=== PATIENT | female | born 2000 | race Caucasian/White ===

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

== ENCOUNTER → 2021-01-08 | Outpatient (CLI) | payer OTHER | LOC: RAD 15:27 | DX: R10.9 Unspecified abdominal pain (principal) ==

== ENCOUNTER → 2021-06-21 | Outpatient (CLI) | payer OTHER ==
[2021-06-21 12:11] LABS: BASO # 0.05 K/mm3 (0.02-0.10); EOS % 3.2 % (0.1-4.0); HEMATOCRIT 39.3 % (35.0-45.0); LYMPH# 2.23 K/mm3 (1.20-3.40); MEAN CELL VOLUME 86 fl (78-95); MEAN CORPUSCULAR HEMOGLOBIN 29 pg (26-32); MEAN CORPUSCULAR HGB CONC 33 g/dL (33-37); MEAN PLATELET VOLUME 10.2 fl (7.4-10.4); MONO # 0.48 K/mm3 (0.10-0.60); NEU # 3.32 K/mm3 (1.40-6.50); PLATELET COUNT 329 K/mm3 (130-400); RED BLOOD COUNT 4.56 M/mm3 (4.10-5.30); RED CELL DISTRIBUTION WIDTH 12.9 % (11.5-14.5); WHITE BLOOD COUNT 6.3 K/mm3 (4.8-10.8)
[2021-06-21 12:15] LABS: ALBUMIN 4.3 g/dL (3.5-5.0); POTASSIUM 4.7 mmol/L (3.5-5.1)
[2021-06-21 12:16] LABS: CALCIUM 9.2 mg/dL (8.3-10.5)
[2021-06-21 12:18] LABS: TOTAL PROTEIN 7.7 g/dL (6.4-8.3)
[2021-06-21 12:20] LABS: TOTAL BILIRUBIN 0.4 mg/dL (0.2-1.2)
== END ==
LOC: LAB 11:42
PROVIDERS: Family Medicine
DX: Z00.00 Encounter for general adult medical examination without abnormal findings (principal); N92.1 Excessive and frequent menstruation with irregular cycle; J45.990 Exercise induced bronchospasm; E78.5 Hyperlipidemia, unspecified

== ENCOUNTER → 2022-06-02 | Outpatient (CLI) | payer OTHER ==
[2022-06-02 14:30] LABS: BASO # 0.04 K/mm3 (0.02-0.10); EOS # 0.06 K/mm3 (0.04-0.40); EOS % 0.8 % (1.0-5.0); HEMATOCRIT 44.4 % (37.0-47.0); HEMOGLOBIN 14.8 g/dL (12.5-16.0); LYMPH# 2.01 K/mm3 (1.50-4.00); MEAN CELL VOLUME 84 fl (78-100); MEAN CORPUSCULAR HEMOGLOBIN 28 pg (27-31); MEAN CORPUSCULAR HGB CONC 33 g/dL (33-37); MEAN PLATELET VOLUME 10.4 fl (7.4-10.4); NEU # 4.71 K/mm3 (1.40-6.50); PLATELET COUNT 334 K/mm3 (130-400); RED BLOOD COUNT 5.31 M/mm3 (4.10-5.30); RED CELL DISTRIBUTION WIDTH 12.1 % (11.5-14.5); WHITE BLOOD COUNT 7.2 K/mm3 (4.8-10.8)
[2022-06-02 14:32] LABS: ALBUMIN 4.7 g/dL (3.5-5.0); POTASSIUM 4.4 mmol/L (3.5-5.1)
[2022-06-02 14:33] LABS: CALCIUM 10.4 mg/dL (8.3-10.5)
[2022-06-02 14:34] LABS: TOTAL PROTEIN 8.1 g/dL (6.4-8.3)
[2022-06-02 14:36] LABS: TOTAL BILIRUBIN 0.6 mg/dL (0.2-1.2)
== END ==
LOC: LAB 13:55
PROVIDERS: Nurse Practitioner Family
DX: R10.9 Unspecified abdominal pain (principal); R11.0 Nausea

== ENCOUNTER → 2022-06-03 | Outpatient (CLI) | payer OTHER ==
[2022-06-03 09:37] LABS: URINE APPEARANCE CLOUDY; URINE BILIRUBIN NEGATIVE (NEGATIVE); URINE BLOOD TRACE (NEGATIVE); URINE COLOR DK YELLOW; URINE GLUCOSE NEGATIVE (NEGATIVE); URINE KETONE 2+ (NEGATIVE); URINE LEUKOCYTE ESTERASE TRACE (NEGATIVE); URINE NITRATE NEGATIVE (NEGATIVE); URINE PROTEIN(semi-quant) TRACE (NEGATIVE); URINE UROBILINOGEN NORMAL (NORMAL)
[2022-06-03 09:38] LABS: URINE MUCUS PRESENT (NOT PRESENT)
== END ==
LOC: RAD 08:00
PROVIDERS: Nurse Practitioner Family
DX: R10.9 Unspecified abdominal pain (principal); R11.0 Nausea